=== PATIENT | male | born 1985 | race Two or more races ===

== ENCOUNTER 2019-06-23 14:25 | Emergency (ER) | payer MEDICAID ==
[~2019-06-23] VITALS: Ht 175.3 cm; Wt 83.9 kg
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
[2019-06-23] MEDS ORDERED: Lidocaine HCl 2% Jelly 6ml Tube TOPIC ONE (15:00)
[2019-06-23] MEDS ORDERED: Tetanus/Diptheria/Pertussis IM ONE (15:00)
[2019-06-23] MEDS ORDERED: Ketorolac 30mg Inj IV ONE (15:00)
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
[2019-06-23 15:29] LABS: BASOPHILS % (AUTO) 0.7 % (0.0-2.0); EOSINOPHILS % (AUTO) 0.2 % (0.0-3.0); HEMATOCRIT 47.5 % (42.0-52.0); HEMOGLOBIN 16.8 G/DL (14.2-18.0); LYMPHOCYTES % (AUTO) 19.1 % (20.0-45.0); MEAN CORPUSCULAR VOLUME 84 FL (80-99); MONOCYTES % (AUTO) 7.7 % (1.0-10.0); NEUTROPHILS % (AUTO) 72.3 % (45.0-75.0); PLATELET COUNT 211 K/UL (150-450); RED BLOOD COUNT 5.65 M/UL (4.70-6.10); RED CELL DISTRIBUTION WIDTH 10.8 % (11.6-14.8); WHITE BLOOD COUNT 11.1 K/UL (4.8-10.8)
[2019-06-23 15:46] LABS: ANION GAP 9 mmol/L (5-15); BLOOD UREA NITROGEN 15 mg/dL (7-18); CALCIUM 9.3 MG/DL (8.5-10.1); CARBON DIOXIDE 26 MMOL/L (21-32); CHLORIDE 106 MMOL/L (98-107); CREATININE 1.1 MG/DL (0.55-1.30); POTASSIUM 3.8 MMOL/L (3.5-5.1); SODIUM 141 MMOL/L (136-145)
[2019-06-23 15:51] LABS: ALANINE AMINOTRANSFERASE 85 U/L (12-78); ALBUMIN 4.2 G/DL (3.4-5.0); ALBUMIN/GLOBULIN RATIO 1.3 (1.0-2.7); ALKALINE PHOSPHATASE 112 U/L (46-116); ASPARTATE AMINO TRANSFERASE 38 U/L (15-37); BILIRUBIN,TOTAL 0.7 MG/DL (0.2-1.0)
--- NOTE | 2019-06-23 16:05 | NUR ---
ED Nurse Note: patient is resting comfortably in bed, at bedside.
[2019-06-23 16:12] VITALS: BP 135/83
--- NOTE | 2019-06-23 16:18 | NUR ---
ED Nurse Note: xray at bedside.
--- NOTE | 2019-06-23 17:08 | NUR ---
ED Nurse Note: patient came back from CT
[2019-06-23] MEDS ORDERED: Lidocaine 1% 10mg/ml/EPI 0.01mg/ml 20ml INJ ONE ×2 (17:13→17:15)
--- NOTE | 2019-06-23 17:47 | Diagnostic Imaging Report ---
EXAM: CT Lumbar Spine Without Intravenous Contrast CLINICAL HISTORY: PAIN TECHNIQUE: Axial computed tomography images of the lumbar spine without intravenous contrast. CTDI is 25.50 mGy and DLP is 936.80 mGy-cm. One or more of the following dose reduction techniques were used: automated exposure control, adjustment of the mA and or kV according to patient size, use of iterative reconstruction technique. COMPARISON: none FINDINGS: Vertebrae: Unremarkable. No acute fracture. Discs spinal canal neural foramina: Minimal diffuse disc bulging at L3- L4, L4-L5 and L5-S1. No spinal canal stenosis. Soft tissues: Unremarkable. IMPRESSION: Minimal diffuse disc bulging at L3-L4, L4-L5 and L5-S1. Otherwise unremarkable L-spine CT.
--- NOTE | 2019-06-23 17:48 | Diagnostic Imaging Report ---
EXAM: XR Left Tibia and Fibula, 2 Views CLINICAL HISTORY: PAIN TECHNIQUE: Frontal and lateral views of the left tibia and fibula. COMPARISON: none FINDINGS: Bones joints: Unremarkable. No acute fracture. No dislocation. Soft tissues: Unremarkable. No radiopaque foreign body. IMPRESSION: Normal left tibia and fibula x-rays.
--- NOTE | 2019-06-23 17:49 | Diagnostic Imaging Report ---
EXAM: XR Right Tibia and Fibula, 2 Views CLINICAL HISTORY: PAIN TECHNIQUE: Frontal and lateral views of the right tibia and fibula. COMPARISON: none FINDINGS: Bones joints: Unremarkable. No acute fracture. No dislocation. Soft tissues: Unremarkable. No radiopaque foreign body. IMPRESSION: Normal right tibia and fibula x-rays.
--- NOTE | 2019-06-23 17:49 | Diagnostic Imaging Report ---
EXAM: XR Right Femur, 2 Views CLINICAL HISTORY: PAIN TECHNIQUE: Frontal and lateral views of the right femur. COMPARISON: none FINDINGS: Bones joints: Unremarkable. No acute fracture. No dislocation. Soft tissues: Unremarkable. IMPRESSION: Normal right femur x-rays.
[2019-06-23] MEDS ORDERED: Neosporin Oint Ud Pkt TOPIC ONE ×2 (17:50→18:00)
--- NOTE | 2019-06-23 17:50 | Diagnostic Imaging Report ---
EXAM: XR Left Femur, 2 Views CLINICAL HISTORY: PAIN TECHNIQUE: Frontal and lateral views of the left femur. COMPARISON: none FINDINGS: Bones joints: Unremarkable. No acute fracture. No dislocation. Soft tissues: Unremarkable. IMPRESSION: Normal left femur x-rays.
[2019-06-23] MEDS ORDERED: IBUPROFEN600 MG ORAL (17:55)
[2019-06-23] MEDS ORDERED: CEPHALEXIN500 MG ORAL (17:55)
[2019-06-23] MEDS ORDERED: Bacitracin Oint UD TOPIC ONE (18:00)
--- NOTE | 2019-06-23 18:14 | NUR ---
ED Nurse Note: xray at bedside
--- NOTE | 2019-06-23 18:57 | Diagnostic Imaging Report ---
EXAM: XR Right Foot Complete, 3 or More Views CLINICAL HISTORY: PAIN TECHNIQUE: Frontal, lateral and oblique views of the right foot. COMPARISON: none FINDINGS: Bones joints: Unremarkable. No acute fracture. No dislocation. Soft tissues: Unremarkable. No radiopaque foreign body. IMPRESSION: Normal right foot x-rays.
[2019-06-23 19:20] VITALS: BP 135/83
--- NOTE | 2019-06-23 19:20 | NUR ---
ER DISCHARGE NOTE: Patient is cleared to be discharged per ERMD, pt is aox4, on room air, with stable vital signs. pt was given dc and prescription instructions, pt was able to verbalize understanding, pt id band and iv site removed without complications. pt is able to ambulate with steady gait. pt took all belongings.
== END 2019-06-23 19:20 | disposition home or self-care (01) ==
LOC: EMR 14:50
DX: S81.811A Laceration without foreign body, right lower leg, initial encounter (principal); T14.8XXA Other injury of unspecified body region, initial encounter; Z23 Encounter for immunization; M79.671 Pain in right foot; M79.604 Pain in right leg; M51.27 Other intervertebral disc displacement, lumbosacral region; M79.605 Pain in left leg; V03.90XA Pedestrian on foot injured in collision with car, pick-up truck or van, unspecified whether traffic or nontraffic accident, initial encounter; Y92.410 Unspecified street and highway as the place of occurrence of the external cause
CPT/HCPCS: 12002; 36415; 72131; 73552; 73590; 73630; 80053; 85025; 90471; 90715; 96361; 96374; J1885; Z7502; 99284

== ENCOUNTER 2019-07-07 14:42 | Emergency (ER) | payer MEDICAID ==
[~2019-07-07] VITALS: Ht 172.7 cm; Wt 83.9 kg
[~2019-07-07 14:42] MED LIST: CEPHALEXIN500 MG ORAL; IBUPROFEN600 MG ORAL
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
[2019-07-07] MEDS ORDERED: BACITRACIN-P28.35 GM TP (15:37)
[2019-07-07] MEDS ORDERED: Neosporin Oint Ud Pkt TOPIC ONE (15:45)
--- NOTE | 2019-07-07 15:50 | NUR ---
ER DISCHARGE NOTE: Patient is cleared to be discharged per ERMD, pt is aox4, on room air, with stable vital signs. pt was given dc and prescription instructions, pt was able to verbalize understanding, pt is able to ambulate with steady gait. pt took all belongings.
[2019-07-07 15:56] VITALS: BP 121/74
[2019-07-07 15:57] VITALS: BP 121/74
== END 2019-07-07 15:57 | disposition home or self-care (01) ==
LOC: EMR 15:46
DX: S81.811D Laceration without foreign body, right lower leg, subsequent encounter (principal); Z48.02 Encounter for removal of sutures
CPT/HCPCS: 99282